=== PATIENT | male | born 1935 | race Caucasian/White ===

== ENCOUNTER → 2016-09-13 | Outpatient (REF) | payer MEDICARE ==
[~2016-09-13] MED LIST: ACET50TAOT PO; ALBU83IN INH; AMLO10TA2 PO; ATOR1TAB21 PO; ATOR40TA PO; DRIS50002 PO; FERR325T3 PO; FINA5TAB2 PO; FLOM5CAP PO; LEVO25TA5 PO; METO25TAB FT; METO25TAB PO; MULT1TAB10 PO; PANT40TA2 PO; QUIN40TA5 PO
== END ==
LOC: M SFHCPLAZ 08:56
PROVIDERS: ATTEND Family Medicine
DX: D50.9 Iron deficiency anemia, unspecified (principal); E55.9 Vitamin D deficiency, unspecified; E03.9 Hypothyroidism, unspecified; Z53.8 Procedure and treatment not carried out for other reasons

== ENCOUNTER → 2016-09-15 | Outpatient (REF) | payer MEDICARE ==
[2016-09-15 13:06] LABS: BASO % 0.7 % (0.0-1.0); EOS # 0.2 K/mm3 (0.0-0.50); EOS % 2.3 % (0.0-3.0); LARGE UNSTAINED CELL # 0.1 K/mm3 (0.0-0.4); LARGE UNSTAINED CELL % 2.2 % (0.0-4.0); LYMPH # 1.5 K/mm3 (1.5-4.5); LYMPH % 20.1 % (24.0-44.0); MEAN CORPUSCULAR HEMOGLOBIN 31.7 pg (27.0-33.0); MEAN CORPUSCULAR HGB CONC 33.3 g/dl (32.0-36.5); MEAN CORPUSCULAR VOLUME 95.2 fl (80.0-96.0); MONO # 0.6 K/mm3 (0.0-0.8); MONO % 8.8 % (0.0-5.0); NEUTROPHILS # 4.3 K/mm3 (1.8-7.7); PLATELET COUNT, AUTOMATED 192 k/mm3 (150-450); RED CELL DISTRIBUTION WIDTH 12.6 % (11.5-14.5); WHITE BLOOD COUNT 6.5 K/mm3 (4.0-10.0)
[2016-09-15 13:33] LABS: VITAMIN B12 LEVEL 431 PG/ML (247-911)
[2016-09-15 13:39] LABS: ALBUMIN 4.3 GM/DL (3.2-5.2); ALBUMIN/GLOBULIN RATIO 1.48 (1.00-1.93); ALKALINE PHOSPHATASE 76 U/L (45-117); ALT/SGPT 25 U/L (12-78); ANION GAP 11 MEQ/L (8-16); AST/SGOT 27 U/L (15-37); BILIRUBIN,TOTAL 0.7 MG/DL (0.2-1.0); BLOOD UREA NITROGEN 18 MG/DL (7-18); CALCIUM LEVEL 9.1 MG/DL (8.8-10.2); CARBON DIOXIDE LEVEL 27 MEQ/L (21-32); CHLORIDE LEVEL 105 MEQ/L (98-107); FERRITIN 40 NG/ML (26-388); GLOMERULAR FILTRATION RATE > 60.0 (>35); GLUCOSE, FASTING 87 MG/DL (83-110); PERCENT SATURATION 43.4 % (19.7-37.4); POTASSIUM SERUM 4.1 MEQ/L (3.5-5.1); SODIUM LEVEL 143 MEQ/L (136-145); TOTAL IRON BINDING CAPACITY 346 UG/DL (250-450); TOTAL PROTEIN 7.2 GM/DL (6.4-8.2)
== END ==
LOC: M SFHCPLAZ 08:15
PROVIDERS: ATTEND Family Medicine
DX: D50.9 Iron deficiency anemia, unspecified (principal); E55.9 Vitamin D deficiency, unspecified; E03.9 Hypothyroidism, unspecified

== ENCOUNTER 2016-11-19 21:09 | Inpatient (IN) | payer MEDICARE ==
[~2016-11-19] VITALS: Ht 175.3 cm; Wt 87.6 kg
[2016-11-19] MEDS ORDERED: NS 1,000 ML IV SCH (21:46)
[2016-11-19] MEDS ORDERED: ONDANSETRON 4MG/2ML VIAL (J2405) IV ONE (22:00)
[2016-11-19] MEDS ORDERED: MORPHINE 2 MG/ML 1ML SYRINGE IV PRN (22:00)
[2016-11-19 22:10] LABS: BASO % 0.1 % (0.0-1.0); EOS # 0.1 K/mm3 (0.0-0.50); EOS % 0.5 % (0.0-3.0); LARGE UNSTAINED CELL # 0.2 K/mm3 (0.0-0.4); LARGE UNSTAINED CELL % 1.2 % (0.0-4.0); LYMPH % 6.3 % (24.0-44.0); MEAN CORPUSCULAR HEMOGLOBIN 32.7 pg (27.0-33.0); MEAN CORPUSCULAR HGB CONC 34.5 g/dl (32.0-36.5); MEAN CORPUSCULAR VOLUME 94.7 fl (80.0-96.0); MONO # 1.3 K/mm3 (0.0-0.8); MONO % 7.8 % (0.0-5.0); NEUTROPHILS # 13.7 K/mm3 (1.8-7.7); NEUTROPHILS % 84.1 % (36.0-66.0); PLATELET COUNT, AUTOMATED 190 k/mm3 (150-450); RED CELL DISTRIBUTION WIDTH 12.2 % (11.5-14.5); WHITE BLOOD COUNT 16.3 K/mm3 (4.0-10.0)
[2016-11-19 22:16] LABS: INR 1.06
[2016-11-19 22:25] LABS: ALBUMIN 3.9 GM/DL (3.2-5.2); ALKALINE PHOSPHATASE 99 U/L (45-117); ALT/SGPT 39 U/L (12-78); ANION GAP 10 MEQ/L (8-16); AST/SGOT 36 U/L (15-37); BILIRUBIN,DIRECT 0.2 MG/DL (0.0-0.2); BILIRUBIN,TOTAL 0.9 MG/DL (0.2-1.0); BLOOD UREA NITROGEN 22 MG/DL (7-18); CALCIUM LEVEL 8.9 MG/DL (8.8-10.2); CARBON DIOXIDE LEVEL 26 MEQ/L (21-32); CHLORIDE LEVEL 104 MEQ/L (98-107); GLOMERULAR FILTRATION RATE > 60.0 (>35); GLUCOSE, FASTING 128 MG/DL (83-110); POTASSIUM SERUM 3.9 MEQ/L (3.5-5.1); SODIUM LEVEL 140 MEQ/L (136-145); TOTAL PROTEIN 7.8 GM/DL (6.4-8.2)
--- NOTE | 2016-11-19 22:40 | REPUSA ---
CT of the abdomen and pelvis without contrast Clinical statement: Pain, fever. Technique: Multiple axial CT images were obtained from the base of the lungs to the floor of the pelv is utilizing 5 mm axial slices without administration of contrast. Coronal and sagittal reconstructio ns were also obtained. No comparison is available. Findings: Chest: The visualized lung bases are clear.. There is a large hiatal hernia. Abdomen: The kidneys are normal in size bilaterally. There is no evidence of hydronephrosis or nephro lithiasis. The liver, spleen, pancreas, gallbladder and adrenal glands are unremarkable. The aorta de monstrates normal caliber and contour. There is no abdominal lymphadenopathy or ascites. Pelvis: The appendix is thickened and inflamed, measuring 14 mm in diameter. Moderately severe surrou nding inflammation in the mesentery is noted. No free fluid or loculated fluid collection is seen. Th ere is evidence for a microperforation, with several very tiny pockets of gas around the appendix. E xtensive diverticulosis is noted. The remainder of the bowel is grossly unremarkable. There is a sma ll midline anterior abdominal wall hernia containing only omental fat. The urinary bladder demonstra nathanael a large right posterior lateral bladder diverticulum measuring 7.8 x 6.6 cm. Trabeculations are n oted within the bladder wall as well. No discrete mass is seen. There is no pelvic lymphadenopathy or ascites. The prostate measures 4.9 x 4.1 cm. Bones: There are no suspicious osseous abnormalities seen. Impression: 1. Findings consistent with acute appendicitis. No evidence of abscess. Findings are suspicious for a microperforation. 2. Severe diffuse diverticulosis, without evidence of diverticulitis. No obstructive bowel changes ar e noted. 3. Large hiatal hernia. 4. No evidence of hydronephrosis or nephrolithiasis. 5. Small midline anterior abdominal wall hernia. 6. Large right posterior lateral bladder diverticulum. Extensive trabeculations also noted within the urinary bladder. This is suspicious for a previous inflammatory processes. Follow-up is recommended as clinically indicated. 7. Enlarged prostate. ER Physician was notified of these findings at 10:30 PM on 11/19/2016.
[2016-11-19] MEDS ORDERED: ONDANSETRON 4MG/2ML VIAL (J2405) IV PRN (22:45)
[2016-11-19] MEDS ORDERED: NORCO, ANEXSIA 5/325MG TABLET (HYDROcodone/ACETAMINOPHEN) PO PRN (22:45)
[2016-11-19] MEDS ORDERED: PIPERACILLIN/TAZOBACTAM SOD 3.375 GM in D5W MINI-BAG PLUS 50 ML IV ONE (22:45)
[2016-11-19] MEDS ORDERED: MORPHINE 4 MG/ML 1ML SYRINGE IV PRN (22:45)
[2016-11-19] MEDS ORDERED: VITMTA PO (23:26)
[2016-11-19] MEDS ORDERED: METO-346 PO (23:40)
[2016-11-20] VITALS (11 sets, daily range): BP systolic 129–185; BP diastolic 64–91
[2016-11-20] MEDS: LR 1,000 ML IV SCH ×2 (01:01→09:01)
[2016-11-20] MEDS: SENOKOT S TAB PO SCH ×3 (01:11→20:18)
[2016-11-20] MEDS: NORCO, ANEXSIA 5/325MG TABLET (HYDROcodone/ACETAMINOPHEN) PO PRN ×3 (01:12→20:19)
[2016-11-20] MEDS: METOPROLOL TART 25 MG TABLET PO SCH ×3 (01:12→20:18)
[2016-11-20] MEDS: PIPERACILLIN/TAZOBACTAM SOD 3.375 GM in D5W MINI-BAG PLUS 50 ML IV SCH ×4 (05:21→23:22)
[2016-11-20] MEDS: QUINAPRIL 20 MG TAB PO SCH (09:00)
[2016-11-20] MEDS ORDERED: amLODIPine 5 MG TAB PO SCH (09:00)
[2016-11-20] MEDS ORDERED: BUPIVACAINE HCL 0.25% 30 ML VIAL As Ordered ONE (09:11)
[2016-11-20] MEDS ORDERED: LIDOCAINE 1% SDV INJ 30 ML VIAL As Ordered ONE (09:11)
--- NOTE | 2016-11-20 09:25 | HPEPDOC ---
General Date of Admission November 19, 2016 at 22:43 Primary Care Physician: Babar Verma M.D. Attending Physician: RENATA PÉREZ MD Chief Complaint The patient is a 81-year-old male admitted with a reason for visit of lower abdominal pain. Source: Patient Exam Limitations: No limitations Timing/Duration: Day(s) Severity: Moderate Associated Symptoms: Chest Pain, Fever, Loss of appetite, Nausea History of Present Illness Patient presents to the ED with complaints of a 3 day history of abdominal pain. Patient reports right-sided lower abdominal pain that started roughly morning. Was vague the start but became severe Tuesday. Patient felt mildly febrile. He reports nausea but no vomiting. He denies any diarrhea, any sick contacts. He denies any prior episodes of similar symptoms. The symptoms became more constant, increased in severity, more sharp in nature, worse with walking. This prompted him to visit the emergency room where he was worked up and found to have evidence for acute appendicitis. Home Medications Scheduled Amlodipine Besylate (Amlodipine Besylate) 10 Mg Tab, 10 MG PO DAILY, (Reported) Atorvastatin Calcium (Atorvastatin Calcium) 40 Mg Tab, 40 MG PO DAILY, (Reported ) Ferrous Sulfate (Ferrous Sulfate) 325 Mg Tab, 325 MG PO DAILY, (Reported) Finasteride (Finasteride) 5 Mg Tab, 5 MG PO QHS, (Reported) Levothyroxine Sodium (Synthroid) 25 Mcg Tab, 37.5 MCG PO DAILY, (Reported) Metoprolol Tartrate (Metoprolol Tartrate) 12.5 Mg Halftab, 12.5 MG PO BID, ( Reported) Multivitamins *[facility] STOCKED* (Thera M Plus *[facility] STOCK[facility]*) 1 Tab Tab, 1 TAB PO DAILY, (Reported) Pantoprazole Sodium (Pantoprazole Sodium) 40 Mg Tab, 40 MG PO QHS, (Reported) Quinapril Hcl (Quinapril HCl) 40 Mg Tab, 40 MG PO DAILY, (Reported) Tamsulosin Hydrochloride (Flomax) 0.4 Mg Cap, 0.4 MG PO QHS, (Reported) Scheduled PRN Acetaminophen (Acetaminophen) 500 Mg Tab, 1,000 MG PO Q4H PRN for PAIN, ( Reported) Albuterol Sulfate (Albuterol Sulfate) 2.5 Mg/3 Ml Nebu, 2.5 MG INH Q4H PRN for SHORTNESS OF BREATH, (Reported) Allergies Coded Allergies: No Known Allergies (Unverified , 10/27/15) Past Medical History Medical History GERD HYPERLIPIDEMIA 2B C-DIFF 05/2014-06/2014 CAD, 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 THOMAS[facility] CKD STAGE 3 AVAILABLE), BUT PER PATIENT FELT 2 ASPIRIN ASTHMA, MILD INTERMITTENT, URI-INDUCED B 50-69% ICA STENOSIS BY 05/2014 US DONE PRIOR TO CABG HYPOTHYROIDISM-12/2014 TPO AB (<60) IRON DEFICIENCY ANEMIA VITMAIN D DEFICIENCY IMPAIRED FASTING GLUCOSE LARGE HIATAL HERNIA BY 10/2015 EGD/COLONOSCOPY/UGI SBFT-REINDL BPH C H/O URINARY RETENTION-12/2015 CYSTO C LARGE DIVERTICULUM-KEYSHAWN, 11/2015 NORMAL UDS MODERATE AV SCLEROSIS, MILD AI, MILD PHTN, NORMAL DIASTOLIC/SYSTOLIC FUNCTION BY 08/2016 [facility] Surgical History HERNIA REPAIR LEFT INGUINAL [address] POLLARD 05/16/14 CAB[address] 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 Dyspnea, Lt Headedness Gastrointestinal: Reports: Nausea, Abdominal Pain Genitourinary: Reports: Retention Hematologic: Denies: Bruising, Bleeding Excessively Musculoskeletal: Denies: Neck Pain, Back Pain, Joint Pain, Muscle Pain, Spasms Neurological: Denies: Weakness, Numbness, Change in speech, Confusion Psych: Reports: Mood Normal, Denies: Depression, Memory Issues Physical Examination Eye Exam: Positive: PERRLA, Conjunctiva & lids normal, EOMI, Negative: Sclera icteric ENT Exam: Positive: Atraumatic, Mucous membr. moist/pink, Pharynx Normal Neck Exam: Positive: Supple, Negative: JVD, thyromegaly Chest Exam: Positive: Clear to auscultation, Normal air movement Heart Exam: Positive: Rate Normal, Regular Rhythm, Normal S1, Normal S2, Negative: Murmurs, Rubs Abdomen Exam: Positive: Normal bowel sounds, BS Hyperactive, BS Hypoactive, Soft, Tenderness (right lower quadrant, suprapubic, intraumbilical area with mild guarding), Hepatospenomegaly, Other (round abdomen, soft, tender to palpation right lower quadrant with guarding), Negative: Mass, Hernia Extremity Exam: Positive: Normal pulses, Negative: Clubbing, Cyanosis, Edema Skin Exam: Positive: Nl turgor and temperature, Negative: Breakdown, Lesion Neuro Exam: Positive: Normal Gait, Normal Speech, Cranial Nerves 3-12 NL, Reflexes 2+ Psych Exam: Positive: Mental status NL, Mood NL, Oriented x 3 Vital Signs Vital Signs Date Time Temp Pulse Resp B/P (MAP) Pulse Ox O2 Delivery O2 Flow Rate FiO2 11/20/16 06:56 130/64 (86) 11/20/16 06:07 18 11/20/16 05:50 98.9 66 95 Room Air Laboratory Data Labs 24H Laboratory Tests 2 11/19/16 21:46: Prothrombin Time 13.9, Prothromb Time International Ratio 1.06 11/19/16 21:47: White Blood Count 16.3H, Red Blood Count 4.54, Hemoglobin 14.8, Hematocrit 43.0 , Mean Corpuscular Volume 94.7, Mean Corpuscular Hemoglobin 32.7, Mean Corpuscular Hemoglobin Concent 34.5, Red Cell Distribution Width 12.2, Platelet Count 190, Neutrophils (%) (Auto) 84.1H, Lymphocytes (%) (Auto) 6.3L, Monocytes (%) (Auto) 7.8H, Eosinophils (%) (Auto) 0.5, Basophils (%) (Auto) 0.1, Neutrophils # (Auto) 13.7H, Lymphocytes # (Auto) 1.0L, Monocytes # (Auto) 1.3H, Eosinophils # (Auto) 0.1, Basophils # (Auto) 0.0, Large Unclassified Cells % 1.2 , Large Unclassified Cells # 0.2, Anion Gap 10, Glomerular Filtration Rate > 60.0, Calcium Level 8.9, Aspartate Amino Transf (AST/SGOT) 36, Alanine Aminotransferase (ALT/SGPT) 39, Alkaline Phosphatase 99, Total Bilirubin 0.9, Direct Bilirubin 0.2, Total Creatine Kinase 147, Creatine Kinase MB 1.4, Creatine Kinase MB Relative Index 0.95, Troponin I < 0.02, Total Protein 7.8, Albumin 3.9, Albumin/Globulin Ratio 1.00, Lipase 126 11/20/16 00:21: Urine Appearance CLOUDYH, Urine Color YELLOW, Urine pH 5.0, Urine Specific [place] 1.021, Urine Protein NEGATIVE, Urine Glucose (UA) NEGATIVE, Urine Ketones NEGATIVE, Urine Urobilinogen 0.2, Urine Bilirubin NEGATIVE, Urine Leukocyte Esterase 3+H, Urine Blood 1+H, Urine Nitrite POSITIVE, Urine WBC (Auto ) 133H, Urine RBC (Auto) 21H, Urine Hyaline Casts (Auto) 0, Urine Bacteria (Auto ) NEGATIVE, Urine Squamous Epithelial Cells 0, Urine Amorphous Sediment SMALLH, Urine Mucus (Auto) SMALL, Urine Sperm (Auto) CBC/BMP Laboratory Tests 11/19/16 21:47 Red Blood Count 4.54, Mean Corpuscular Volume 94.7, Mean Corpuscular Hemoglobin 32.7, Mean Corpuscular Hemoglobin Concent 34.5, Red Cell Distribution Width 12.2 , Neutrophils (%) (Auto) 84.1 H, Lymphocytes (%) (Auto) 6.3 L, Monocytes (%) ( Auto) 7.8 H, Eosinophils (%) (Auto) 0.5, Basophils (%) (Auto) 0.1, Neutrophils # (Auto) 13.7 H, Lymphocytes # (Auto) 1.0 L, Monocytes # (Auto) 1.3 H, Eosinophils # (Auto) 0.1, Basophils # (Auto) 0.0 Microbiology Microbiology 11/20/16 Urine Culture, Received Pending Assessment/Plan acute perforated appendicitis Problems (1) Acute perforated appendicitis Plan / VTE VTE Prophylaxis Ordered?: Yes Plan Plan There is evidence that the appendix may have signs of perforation (bubbles of free air around tip of appendix) maybe ischemic/necrotic. No signs of well formed abscess. I think he will still benefit with laparoscopic appendectomy to cut down the inflammatory process. Should be doable laparoscopic with mild increased risk for bowel injury. Consent obtained from the patient. He has been started and given Zosyn perioperatively. He most likely will keep him in the hospital until leukocytosis resolves and to ensure no febrile episodes postoperatively. Diet: RENATA Ortiz MD November 20, 2016 08:29
[2016-11-20] MEDS ORDERED: dexameTHASONE 4 MG/ML 1ML VIAL (J1100) As Ordered ONE (10:29)
[2016-11-20] MEDS ORDERED: ONDANSETRON 4MG/2ML VIAL (J2405) As Ordered ONE (10:29)
[2016-11-20] MEDS ORDERED: LIDOCAINE 2% INJ 100 MG/5 ML SDV (FOR ANES.) As Ordered ONE (10:29)
[2016-11-20] MEDS ORDERED: MIDAZOLAM INJ 2 MG/2 ML VIAL (J2250) As Ordered ONE (10:29)
[2016-11-20] MEDS ORDERED: NEOSTIGMINE 1MG/ML 5 ML SYRINGE (J2710) As Ordered ONE (10:29)
[2016-11-20] MEDS ORDERED: fentaNYL 250 MCG/5 ML INJECTION (J3010) As Ordered ONE (10:29)
[2016-11-20] MEDS ORDERED: GLYCOPYRROLATE INJ 0.2 MG/ML 2 ML VIAL As Ordered ONE (10:29)
[2016-11-20] MEDS ORDERED: PROPOFOL 200 MG/20 ML VIAL As Ordered ONE (10:29)
[2016-11-20] MEDS ORDERED: ROCURONIUM BROMIDE 50 MG/5 ML VIAL As Ordered ONE (10:29)
--- NOTE | 2016-11-20 10:56 | ROOPDOC ---
[facility] Report Of Operation Report of Operation DATE OF PROCEDURE: 11/20/16 PREPROCEDURE DIAGNOSES: [Acute perforated appendicitis]. POSTPROCEDURE DIAGNOSES: . PROCEDURE: [Laparoscopic appendectomy]. SURGEON: [Renard Elias]MD DIGITAL COMMUNICATIONS MANAGER: , ANESTHESIA: [General]. ESTIMATED BLOOD LOSS: Approximately mL. COMPLICATIONS: [none]. REMARKS: [Perforated appendix but no loculated abscess and small amount of reactive seropurulent fluid in the gutter and in the pelvis. A 10 flat JUSTYNA drain was left in place]. PROCEDURE NOTE: [Patient admitted through the emergency department with a three- day history of abdominal pain. Workup in the ER shows acute appendicitis with surrounding bubbles of free air consistent with perforation/microperforation. Patient is brought to the OR for laparoscopic appendectomy]. DESCRIPTION OF PROCEDURE: . Patient has been given a dose of Zosyn perioperatively.Patient was brought to the operating room, placed supine on the table. Sequential compression device placed for DVT prophylaxis. General endotracheal anesthesia started. The abdomen prepped and draped in usual sterile fashion. After a surgical timeout, we began our surgery Entry into the abdomen done through an incision above the umbilicus. Veress needle inserted on a controlled fashion. Intra-abdominal placement confirmed with saline drop technique. CO2 insufflation started to a pressure of 15 mmHg. Using the same incision a 12 mm port was placed under direct vision of laparoscope. Insertion site was inspected for injury and none was found. He was placed on a Trendelenburg position the right side tilted to about 30 to allow for better visualization of the appendix. 2 working ports were placed at the suprapubic area and left lower quadrant area under direct vision. Operative findings: The appendix is noted inflamed and stuck in b/w the loop of small bowel and mesentery and the terminal ileum on the other side, There is fibrinous covering throughout the mid portion of appendix. Small amount of murky serous fluid in the gutter and pelvis The appendix was located, the adhered bowels and mesentery was widely dissected away from the appendix freeing up the appendix from the inflammatory adhesions using [place] instrument and suction irrigation. The Surrounding bowels retracted away from the appendix. This was grasped to pull the base of the appendix into view. The mesoappendix was divided using Harmonic scalpel down to the base. A Vicryl Endoloop was placed to ligate the appendix at its base then divided with a Harmonic Scalpel the stump cauterized. Stump appears healthy. Appendix was then delivered into an Endo Catch bag. After re-insufflation the surgical site was inspected for hemostasis, the visualized fluid collections irrigated and suctioned off until clear return. Surrounding areas of the abdomen and inspected for fluid collections or signs of injury. A 10 flat JUSTYNA drain was left in place close to the abdomen initial stump for monitoring and for drainage of fluid irrigation. The abdomen was deflated. All ports removed. The umbilical fascial defect repaired with 0 Vicryl in a mattress fashion. All skin incisions closed with 4-0 Monocryl in a subcuticular fashion. Steri-Strips and gauze dressing used for wound coverage. Patient was promptly awake and extubated and brought to recovery room stable. All counts of sponges and instruments verified to be correct. RENARD ELIAS MD November 20, 2016 09:54
[2016-11-20] MEDS ORDERED: fentaNYL 100 MCG/2 ML INJECTION (J3010) IV PRN (11:15)
[2016-11-20] MEDS ORDERED: PERCOCET 5MG/325MG TAB PO PRN (11:15)
[2016-11-20] MEDS ORDERED: LR 1,000 ML IV SCH (11:15)
[2016-11-20] MEDS ORDERED: HYDROmorphone HCL 1 MG/ML SYRINGE (J1170) IV PRN (11:15)
[2016-11-20] MEDS ORDERED: ONDANSETRON 4MG/2ML VIAL (J2405) IV PRN (11:15)
[2016-11-20] MEDS ORDERED: PERCOCET 5MG/325MG TAB As Ordered ONE (11:27)
--- NOTE | 2016-11-20 18:51 | ECGEPIP ---
Stationary ECG Study [facility] Test Date: 2016-11-20 Pat Name: ELLYN ZAVALA Department: Room: [place] [address] Gender: M [employer] Application Developer: CHARBEL : [id number] Requested By: RENATA Ashby Order Number: [id number] Reading MD: José Miguel Marroquin Measurements Intervals [place] Rate: 74 P: 70 [place]: 219 QRS: -3 QRSD: 158 T: 17 QT: 407 QTc: 453 Interpretive Statements SINUS RHYTHM WITH FIRST DEGREE AV BLOCK POSSIBLE RIGHT ATRIAL ENLARGEMENT INDETERMINATE AXIS RIGHT BUNDLE BRANCH BLOCK Probable right ventricle enlargement. No significant change compared with 06/29/2016. Electronically Signed On 11-20-2016 18:51:20 EDT by José Miguel Marroquin
[2016-11-21] MEDS: NORCO, ANEXSIA 5/325MG TABLET (HYDROcodone/ACETAMINOPHEN) PO PRN ×4 (04:01→21:10)
[2016-11-21] MEDS: PIPERACILLIN/TAZOBACTAM SOD 3.375 GM in D5W MINI-BAG PLUS 50 ML IV SCH (05:09)
[2016-11-21 06:00] VITALS: BP 149/70
[2016-11-21 06:15] LABS: BASO % 0.1 % (0.0-1.0); EOS % 0.1 % (0.0-3.0); LARGE UNSTAINED CELL # 0.2 K/mm3 (0.0-0.4); LARGE UNSTAINED CELL % 1.3 % (0.0-4.0); LYMPH # 1.1 K/mm3 (1.5-4.5); MEAN CORPUSCULAR HEMOGLOBIN 31.7 pg (27.0-33.0); MEAN CORPUSCULAR HGB CONC 33.8 g/dl (32.0-36.5); MEAN CORPUSCULAR VOLUME 93.6 fl (80.0-96.0); MONO # 1.2 K/mm3 (0.0-0.8); MONO % 8.8 % (0.0-5.0); NEUTROPHILS # 11.4 K/mm3 (1.8-7.7); NEUTROPHILS % 82.7 % (36.0-66.0); PLATELET COUNT, AUTOMATED 201 k/mm3 (150-450); RED CELL DISTRIBUTION WIDTH 12.2 % (11.5-14.5); WHITE BLOOD COUNT 13.8 K/mm3 (4.0-10.0)
[2016-11-21 06:32] LABS: ANION GAP 7 MEQ/L (8-16); BLOOD UREA NITROGEN 15 MG/DL (7-18); CARBON DIOXIDE LEVEL 30 MEQ/L (21-32); CHLORIDE LEVEL 101 MEQ/L (98-107); CREATININE FOR GFR 1.06 MG/DL (0.70-1.30); GLOMERULAR FILTRATION RATE > 60.0 (>35); GLUCOSE, FASTING 106 MG/DL (83-110); SODIUM LEVEL 138 MEQ/L (136-145)
[2016-11-21] MEDS: amLODIPine 10 MG TAB PO SCH (08:49)
[2016-11-21] MEDS: SENOKOT S TAB PO SCH ×2 (08:50→21:09)
[2016-11-21] MEDS: METOPROLOL TART 25 MG TABLET PO SCH ×2 (08:50→21:09)
[2016-11-21 10:00] VITALS: BP 131/65
[2016-11-21] MEDS: QUINAPRIL 20 MG TAB PO SCH (10:23)
[2016-11-21] MEDS: CIPROFLOXACIN 500 MG TAB PO SCH ×2 (10:41→17:08)
[2016-11-21 14:00] VITALS: BP 146/75
[2016-11-21] MEDS: metroNIDAZOLE (FLAGYL) 500 MG TAB PO SCH ×2 (14:14→21:12)
[2016-11-21 18:00] VITALS: BP 135/65
[2016-11-21 22:00] VITALS: BP 174/84
[2016-11-22 05:24] VITALS: BP 167/86
[2016-11-22] MEDS: CIPROFLOXACIN 500 MG TAB PO SCH ×2 (05:24→16:55)
[2016-11-22] MEDS: metroNIDAZOLE (FLAGYL) 500 MG TAB PO SCH ×3 (05:24→20:04)
[2016-11-22] MEDS: ACETAMINOPHEN TAB 650MG DOSE (2X325MG) PO PRN (05:24)
[2016-11-22 05:55] LABS: BASO % 0.3 % (0.0-1.0); EOS # 0.3 K/mm3 (0.0-0.50); EOS % 2.4 % (0.0-3.0); LARGE UNSTAINED CELL # 0.2 K/mm3 (0.0-0.4); LARGE UNSTAINED CELL % 1.5 % (0.0-4.0); LYMPH # 0.9 K/mm3 (1.5-4.5); LYMPH % 6.9 % (24.0-44.0); MEAN CORPUSCULAR HEMOGLOBIN 32.5 pg (27.0-33.0); MEAN CORPUSCULAR HGB CONC 34.7 g/dl (32.0-36.5); MEAN CORPUSCULAR VOLUME 93.7 fl (80.0-96.0); MONO # 1.3 K/mm3 (0.0-0.8); MONO % 11.3 % (0.0-5.0); NEUTROPHILS # 8.7 K/mm3 (1.8-7.7); NEUTROPHILS % 77.6 % (36.0-66.0); PLATELET COUNT, AUTOMATED 209 k/mm3 (150-450); WHITE BLOOD COUNT 11.2 K/mm3 (4.0-10.0)
[2016-11-22 06:07] LABS: ANION GAP 8 MEQ/L (8-16); BLOOD UREA NITROGEN 22 MG/DL (7-18); CALCIUM LEVEL 8.3 MG/DL (8.8-10.2); CARBON DIOXIDE LEVEL 27 MEQ/L (21-32); CHLORIDE LEVEL 101 MEQ/L (98-107); CREATININE FOR GFR 1.01 MG/DL (0.70-1.30); GLOMERULAR FILTRATION RATE > 60.0 (>35); GLUCOSE, FASTING 92 MG/DL (83-110); POTASSIUM SERUM 3.8 MEQ/L (3.5-5.1); SODIUM LEVEL 136 MEQ/L (136-145)
[2016-11-22 09:03] VITALS: BP 170/78
[2016-11-22] MEDS: QUINAPRIL 20 MG TAB PO SCH (09:10)
[2016-11-22] MEDS: SENOKOT S TAB PO SCH ×2 (09:10→20:04)
[2016-11-22] MEDS: METOPROLOL TART 25 MG TABLET PO SCH ×2 (09:11→20:05)
[2016-11-22] MEDS: amLODIPine 10 MG TAB PO SCH (09:11)
--- NOTE | 2016-11-22 09:14 | IPNPDOC ---
Subjective General Date/Time Seen The patient was seen on 11/22/16 at 09:00. Subject Chief Complaint/History The patient is a 81-year-old male admitted with a reason for visit of Acute Appendicitis. Reports feeling well. No discomfort over right side, some discomfort where drain exits. Had low grade temp earlier this am (100.4) and reports a passing nausea spell but alright now. Current Medications Current Medications Current Medications Acetaminophen (Tylenol Tab) 650 mg Q4HP PRN PO MILD PAIN or TEMP > 101 Last administered on 11/22/16 05:24; Start 11/19/16 at 22:45; Stop 12/19/16 at 22:44 Acetaminophen/ Hydrocodone Bitart ([place], [place] 5/325) 1 tab Q4HP PRN PO MODERATE PAIN (PS 5-7) Last administered on 11/21/16 21:10; Start 11/19/16 at 22:45; Stop 11/26/16 at 22:44 Acetaminophen/ Hydrocodone Bitart ([place], Anexsia 5/325) 2 tab Q6HP PRN PO SEVERE PAIN (PS 8-10); Start 11/19/16 at 22:45; Stop 11/26/16 at 22:44 Amlodipine Besylate (Norvasc) 10 mg DAILY PO Last administered on 11/20/16 09: 00; Start 11/20/16 at 09:00; Stop 11/20/16 at 11:03; Status DC Amlodipine Besylate (Norvasc) 10 mg DAILY PO Last administered on 11/21/16 08: 49; Start 11/21/16 at 09:00; Stop 12/21/16 at 08:59 Ciprofloxacin (Cipro) 500 mg BID@,18 PO Last administered on 11/22/16 05:24 ; Start 11/21/16 at 06:00; Stop 11/28/16 at 05:59 Fentanyl Citrate (Sublimaze) 25 mcg Q5MP PRN IV MODERATE PAIN (PS 4-7); Start 11/20/16 at 11:15; Stop 11/20/16 at 12:15; Status DC Home Med (Med Rec Complete!) ASDIRECTED XX ; Start 11/19/16 at 23:30; Stop 06/26 at 23:30; Status DC Hydromorphone HCl (Dilaudid) 0.2 mg Q5MP PRN IV MODERATE/SEVERE PAIN (PS 7-10) ; Start 11/20/16 at 11:15; Stop 11/20/16 at 12:15; Status DC Lactated Ringer's 1,000 ml @ 100 mls/hr Q10H IV Last administered on 09:01; Start 11/19/16 at 22:43; Stop 11/20/16 at 17:11; Status DC Lactated Ringer's 1,000 ml @ 100 mls/hr Q10H IV Last administered on 11:15; Start 11/20/16 at 11:15; Stop 11/20/16 at 12:15; Status DC Metoprolol Tartrate (Lopressor) 25 mg BID PO Last administered on 11/21/16 21: 09; Start 11/19/16 at 21:00; Stop 12/19/16 at 20:59 Metronidazole (Flagyl) 500 mg Q8H PO Last administered on 11/22/16 05:24; Start 11/21/16 at 14:00; Stop 11/28/16 at 13:59 Morphine Sulfate (Morphine Sulfate Inj) 2 mg Q15M PRN IV MODERATE/SEVERE PAIN ( PS 5-10) Last administered on 11/19/16 22:40; Start 11/19/16 at 22:00 Morphine Sulfate (Morphine Sulfate Inj) 4 mg Q2HP PRN IV SEVERE PAIN (PS 8-10) ; Start 11/19/16 at 22:45; Stop 11/26/16 at 22:44 Ondansetron HCl (ZOFRAN INJection) 4 mg Q4HP PRN IV NAUSEA OR VOMITING; Start 11/20/16 at 11:15; Stop 11/20/16 at 12:15; Status DC Ondansetron HCl (ZOFRAN INJection) 4 mg Q6HP PRN IV NAUSEA OR VOMITING; Start 11/19/16 at 22:45; Stop 12/19/16 at 22:44 Oxycodone/ Acetaminophen (Percocet 5mg/ 325mg Tablet) 1 tab ASDIRECTED PRN PO MODERATE PAIN (PS 4-7) Last administered on 11/20/16 11:30; Start 11/20/16 at 11:15; Stop 11/20/16 at 12:15; Status DC Piperacillin Sod/ Tazobactam Sod 3.375 gm/Dextrose 50 ml @ 50 mls/hr Q6H IV Last administered on 11/21/16 05:09; Start 11/20/16 at 06:00; Stop 11/21/16 at 10:34; Status DC Quinapril HCl (Accupril) 40 mg DAILY PO Last administered on 11/21/16 10:23; Start 11/20/16 at 09:00; Stop 12/20/16 at 08:59 Senna/Docusate Sodium (Senokot S) 1 tab BID PO Last administered on 11/21/16 21:09; Start 11/19/16 at 21:00; Stop 12/19/16 at 20:59 Sodium Chloride 1,000 ml @ 100 mls/hr Q10H IV Last administered on 11/19/16 22:40; Start 11/19/16 at 21:46; Stop 11/19/16 at 22:50; Status DC Allergies Coded Allergies: No Known Allergies (Unverified , 10/27/15) Objective Physical Examination Examination GENERAL APPEARANCE:[Patient seen, laying in bed, awake, alert, and oriented. Comfortable, in no acute distress]. SKIN: [Warm and moist]. HEENT: [Normocephalic, atraumatic. Hoyt palpebral conjunctiva, anicteric sclerae. Lips and mucosa appear moist]. NECK: [Supple, no thyromegaly. No obvious jugular venous distention]. LUNGS: [Clear to auscultation bilaterally. No wheezing appreciated]. HEART: [No chest wall abnormalities. Regular rate and rhythm with no murmurs appreciated]. ABDOMEN: Abdomen is round, soft, minimally distended. port site dressings dry. Left lower quadrant roopa drain with serous fluid. nontender to palpation EXTREMITIES: [Extremities have no deformities. No edema identified]. Vital Signs Vital Signs Date Time Temp Pulse Resp B/P (MAP) Pulse Ox O2 Delivery O2 Flow Rate FiO2 11/22/16 05:24 100.4 73 18 167/86 (113) 94 Room Air 11/20/16 11:00 2 I&Os I&O- Last 24 Hours up to 6 AM 11/22/16 06:00 Intake Total 2450 ml Output Total 1735 ml Balance 715 ml ROOPA drain 40 (100 mLs overnight) - serous Laboratory Data Labs 24H Laboratory Tests 2 11/22/16 05:23: White Blood Count 11.2H, Red Blood Count 4.50, Hemoglobin 14.6, Hematocrit 42.2 , Mean Corpuscular Volume 93.7, Mean Corpuscular Hemoglobin 32.5, Mean Corpuscular Hemoglobin Concent 34.7, Red Cell Distribution Width 12.0, Platelet Count 209, Neutrophils (%) (Auto) 77.6H, Lymphocytes (%) (Auto) 6.9L, Monocytes (%) (Auto) 11.3H, Eosinophils (%) (Auto) 2.4, Basophils (%) (Auto) 0.3, Neutrophils # (Auto) 8.7H, Lymphocytes # (Auto) 0.9L, Monocytes # (Auto) 1.3H, Eosinophils # (Auto) 0.3, Basophils # (Auto) 0.0, Large Unclassified Cells % 1.5 , Large Unclassified Cells # 0.2, Anion Gap 8, Glomerular Filtration Rate > 60.0 , Blood Urea Nitrogen 22H, Creatinine 1.01, Sodium Level 136, Potassium Level 3.8, Chloride Level 101, Carbon Dioxide Level 27, Calcium Level 8.3L CBC/BMP Laboratory Tests 11/22/16 05:23 Red Blood Count 4.50, Mean Corpuscular Volume 93.7, Mean Corpuscular Hemoglobin 32.5, Mean Corpuscular Hemoglobin Concent 34.7, Red Cell Distribution Width 12.0 , Neutrophils (%) (Auto) 77.6 H, Lymphocytes (%) (Auto) 6.9 L, Monocytes (%) ( Auto) 11.3 H, Eosinophils (%) (Auto) 2.4, Basophils (%) (Auto) 0.3, Neutrophils # (Auto) 8.7 H, Lymphocytes # (Auto) 0.9 L, Monocytes # (Auto) 1.3 H, Eosinophils # (Auto) 0.3, Basophils # (Auto) 0.0, Calcium Level 8.3 L Microbiology Microbiology 11/20/16 Urine Culture - Final, Complete Staphylococcus Epidermidis (contaminant) Impression Acute perforated appendicitis Would watch him today, if does not spike any further febrile episodes would send him home on oral antibiotics. If he spikes a fever again, will switch back to IV antibiotics. Plan / VTE VTE Prophylaxis Ordered?: Yes RENATA PÉREZ MD November 22, 2016 09:14
[2016-11-22] MEDS: NORCO, ANEXSIA 5/325MG TABLET (HYDROcodone/ACETAMINOPHEN) PO PRN ×3 (09:23→23:00)
[2016-11-22 12:14] VITALS: BP 158/76
[2016-11-22 14:00] VITALS: BP 157/77
[2016-11-22 22:00] VITALS: BP 153/77
[2016-11-23] MEDS: metroNIDAZOLE (FLAGYL) 500 MG TAB PO SCH ×2 (05:26→14:53)
[2016-11-23] MEDS: CIPROFLOXACIN 500 MG TAB PO SCH (05:26)
[2016-11-23] MEDS: ACETAMINOPHEN TAB 650MG DOSE (2X325MG) PO PRN ×2 (05:28→12:01)
[2016-11-23 06:00] VITALS: BP 158/82
[2016-11-23 07:22] LABS: BASO % 0.4 % (0.0-1.0); EOS # 0.3 K/mm3 (0.0-0.50); EOS % 3.6 % (0.0-3.0); LARGE UNSTAINED CELL # 0.2 K/mm3 (0.0-0.4); LARGE UNSTAINED CELL % 2.6 % (0.0-4.0); LYMPH # 1.1 K/mm3 (1.5-4.5); LYMPH % 10.4 % (24.0-44.0); MEAN CORPUSCULAR HEMOGLOBIN 31.8 pg (27.0-33.0); MEAN CORPUSCULAR VOLUME 93.3 fl (80.0-96.0); MONO # 1.1 K/mm3 (0.0-0.8); MONO % 12.9 % (0.0-5.0); NEUTROPHILS # 6.1 K/mm3 (1.8-7.7); NEUTROPHILS % 70.1 % (36.0-66.0); PLATELET COUNT, AUTOMATED 231 k/mm3 (150-450); RED CELL DISTRIBUTION WIDTH 11.9 % (11.5-14.5); WHITE BLOOD COUNT 8.7 K/mm3 (4.0-10.0)
[2016-11-23 08:22] VITALS: BP 158/82
[2016-11-23] MEDS: QUINAPRIL 20 MG TAB PO SCH (08:22)
[2016-11-23] MEDS: amLODIPine 10 MG TAB PO SCH (08:22)
[2016-11-23] MEDS: SENOKOT S TAB PO SCH (08:23)
[2016-11-23] MEDS: METOPROLOL TART 25 MG TABLET PO SCH (08:23)
[2016-11-23] MEDS ORDERED: NORCOTAB PO (14:30)
[2016-11-23] MEDS ORDERED: CIPR500T89 PO (14:30)
[2016-11-23] MEDS ORDERED: FLAG500T PO (14:30)
--- NOTE | 2016-11-30 03:57 | DS.PDOC ---
Discharge Summary General Date of Admission November 19, 2016 at 22:43 Date of Discharge November 23, 2016 Attending Physician: RENATA PÉREZ MD Discharge Summary PROCEDURES PERFORMED DURING STAY: [None]. ADMITTING DIAGNOSES: 1. Acute Perforated Appendicitis 2. . 3. . DISCHARGE DIAGNOSES: 1. .Acute Perforated Appendicitis 2. . 3. . COMPLICATIONS/CHIEF COMPLAINT: Acute Appendicitis. HISTORY OF PRESENT ILLNESS: [see Admission Note]. HOSPITAL COURSE: [Patient was admitted overnight, started on Zosyn. He was taken to the operating room for Laparoscopic Appendectomy on 11/20. He was confirmed to have perforated appendicitis. A drain was left in place. He tolerated procedure well. We continued IV antibiotics perioperatively. He was allowed to eat after surgery. He tolerated oral diet. He was having intermittent low-grade fever. His leukocytosis slowly came down. On day of discharge his white cell count is down to normal at 8.7. He also has been afebrile for at least a day. His antibiotics was changed to ciprofloxacin and metronidazole orally as we lost IV access 2 days prior to discharge. His JUSTYNA drain was only putting out serous fluid. This was discontinued on day of discharge. Overall patient feels improved by discharge time. DISCHARGE MEDICATIONS: Please see below. ALLERGIES: Please see below. PHYSICAL EXAMINATION ON DISCHARGE: VITAL SIGNS: Please see below. GENERAL: Comfortable HEENT: [place] palpebral conjunctiva, moist lips and mucosa NECK: No jugular venous distention CARDIOVASCULAR EXAMINATION: Regular heart rate and rhythm RESPIRATORY EXAMINATION: Clear to auscultation bilaterally ABDOMINAL EXAMINATION: Soft, nondistended nontender. Incision sites healing well. Drain site clean and dry. EXTREMITIES: No edema SKIN: Warm and moist NEUROLOGICAL EXAMINATION: Awake alert oriented PSYCHIATRIC EXAMINATION: Normal mood and affect LABORATORY DATA: Please see below. PROGNOSIS: [excellent] ACTIVITY: Light activity 2 weeks DIET: As tolerated DISCHARGE PLAN: Continue on ciprofloxacin and metronidazole for 2 weeks. Follow- up with me in 2 weeks' time DISPOSITION: . home DISCHARGE INSTRUCTIONS: 1. Call for earlier appointment in with fever, nausea, vomiting, severe diarrhea DISCHARGE CONDITION: Greatly improved TIME SPENT ON DISCHARGE: Greater than 30 minutes. Vital Signs/I&Os Vital Signs Date Time Temp Pulse Resp B/P (MAP) Pulse Ox O2 Delivery O2 Flow Rate FiO2 11/20/16 09:01 66 130/64 11/20/16 06:07 18 11/20/16 05:50 98.9 95 Room Air I&O- Last 24 Hours up to 6 AM 11/20/16 06:00 Intake Total 1000 ml Output Total 350 ml Balance 650 ml Laboratory Data Labs 24H Laboratory Tests 2 11/19/16 21:46: Prothrombin Time 13.9, Prothromb Time International Ratio 1.06 11/19/16 21:47: White Blood Count 16.3H, Red Blood Count 4.54, Hemoglobin 14.8, Hematocrit 43.0 , Mean Corpuscular Volume 94.7, Mean Corpuscular Hemoglobin 32.7, Mean Corpuscular Hemoglobin Concent 34.5, Red Cell Distribution Width 12.2, Platelet Count 190, Neutrophils (%) (Auto) 84.1H, Lymphocytes (%) (Auto) 6.3L, Monocytes (%) (Auto) 7.8H, Eosinophils (%) (Auto) 0.5, Basophils (%) (Auto) 0.1, Neutrophils # (Auto) 13.7H, Lymphocytes # (Auto) 1.0L, Monocytes # (Auto) 1.3H, Eosinophils # (Auto) 0.1, Basophils # (Auto) 0.0, Large Unclassified Cells % 1.2 , Large Unclassified Cells # 0.2, Anion Gap 10, Glomerular Filtration Rate > 60.0, Calcium Level 8.9, Aspartate Amino Transf (AST/SGOT) 36, Alanine Aminotransferase (ALT/SGPT) 39, Alkaline Phosphatase 99, Total Bilirubin 0.9, Direct Bilirubin 0.2, Total Creatine Kinase 147, Creatine Kinase MB 1.4, Creatine Kinase MB Relative Index 0.95, Troponin I < 0.02, Total Protein 7.8, Albumin 3.9, Albumin/Globulin Ratio 1.00, Lipase 126 11/20/16 00:21: Urine Appearance CLOUDYH, Urine Color YELLOW, Urine pH 5.0, Urine Specific [place] 1.021, Urine Protein NEGATIVE, Urine Glucose (UA) NEGATIVE, Urine Ketones NEGATIVE, Urine Urobilinogen 0.2, Urine Bilirubin NEGATIVE, Urine Leukocyte Esterase 3+H, Urine Blood 1+H, Urine Nitrite POSITIVE, Urine WBC (Auto ) 133H, Urine RBC (Auto) 21H, Urine Hyaline Casts (Auto) 0, Urine Bacteria (Auto ) NEGATIVE, Urine Squamous Epithelial Cells 0, Urine Amorphous Sediment SMALLH, Urine Mucus (Auto) SMALL, Urine Sperm (Auto) CBC/BMP Laboratory Tests 11/19/16 21:47 Red Blood Count 4.54, Mean Corpuscular Volume 94.7, Mean Corpuscular Hemoglobin 32.7, Mean Corpuscular Hemoglobin Concent 34.5, Red Cell Distribution Width 12.2 , Neutrophils (%) (Auto) 84.1 H, Lymphocytes (%) (Auto) 6.3 L, Monocytes (%) ( Auto) 7.8 H, Eosinophils (%) (Auto) 0.5, Basophils (%) (Auto) 0.1, Neutrophils # (Auto) 13.7 H, Lymphocytes # (Auto) 1.0 L, Monocytes # (Auto) 1.3 H, Eosinophils # (Auto) 0.1, Basophils # (Auto) 0.0 Microbiology Microbiology 11/20/16 Urine Culture, Received Pending Discharge Medications Scheduled Amlodipine Besylate (Amlodipine Besylate) 10 Mg Tab, 10 MG PO DAILY, (Reported) Atorvastatin Calcium (Atorvastatin Calcium) 40 Mg Tab, 40 MG PO DAILY, (Reported ) Ciprofloxacin HCl (Cipro) 500 Mg Tab, 500 MG PO BID@ Ferrous Sulfate (Ferrous Sulfate) 325 Mg Tab, 325 MG PO DAILY, (Reported) Finasteride (Finasteride) 5 Mg Tab, 5 MG PO QHS, (Reported) Levothyroxine Sodium (Synthroid) 25 Mcg Tab, 37.5 MCG PO DAILY, (Reported) Metoprolol Tartrate (Metoprolol Tartrate) 12.5 Mg Halftab, 12.5 MG PO BID, ( Reported) Metronidazole (Flagyl) 500 Mg Tab, 500 MG PO Q8H Multivitamins *[facility] STOCKED* (Thera M Plus *[facility] STOCKED*) 1 Tab Tab, 1 TAB PO DAILY, (Reported) Pantoprazole Sodium (Pantoprazole Sodium) 40 Mg Tab, 40 MG PO QHS, (Reported) Quinapril Hcl (Quinapril HCl) 40 Mg Tab, 40 MG PO DAILY, (Reported) Tamsulosin Hydrochloride (Flomax) 0.4 Mg Cap, 0.4 MG PO QHS, (Reported) Scheduled PRN Acetaminophen (Acetaminophen) 500 Mg Tab, 1,000 MG PO Q4H PRN for PAIN, ( Reported) Acetaminophen/Hydrocodone (Strong, Anexsia 5/325) 1 Tab Tab, 1 TAB PO Q4HP PRN for PAIN Albuterol Sulfate (Albuterol Sulfate) 2.5 Mg/3 Ml Nebu, 2.5 MG INH Q4H PRN for SHORTNESS OF BREATH, (Reported) Allergies Coded Allergies: No Known Allergies (Unverified , 10/27/15) RENATA PÉREZ MD November 20, 2016 10:49
== END 2016-11-23 15:19 | disposition home or self-care (01) | DRG 340 ==
LOC: M ED 22:39 → M ED INP 22:43 → M MSPAV 11-20 00:55
PROVIDERS: ADMIT Surgery; ATTEND Surgery
PROC: 0DTJ4ZZ Resection of Appendix, Percutaneous Endoscopic Approach (ICD-10-PCS; principal; 2016-11-20 08:48)
DX: K35.2 Acute appendicitis with generalized peritonitis (principal); K21.9 Gastro-esophageal reflux disease without esophagitis; E78.5 Hyperlipidemia, unspecified; I25.10 Atherosclerotic heart disease of native coronary artery without angina pectoris; N18.3 Chronic kidney disease, stage 3 (moderate); J45.909 Unspecified asthma, uncomplicated; D50.9 Iron deficiency anemia, unspecified; E03.9 Hypothyroidism, unspecified; E55.9 Vitamin D deficiency, unspecified; Z79.899 Other long term (current) drug therapy

== ENCOUNTER → 2016-12-07 | Outpatient (REF) | payer MEDICARE ==
[~2016-12-07] MED LIST changes: +CIPR500T89 PO; +FLAG500T PO; +METO-346 PO; +NORCOTAB PO; +VITMTA PO
== END ==
LOC: M SFHCPLAZ 16:56
PROVIDERS: ATTEND Physician Assistant
DX: N39.0 Urinary tract infection, site not specified (principal)
CPT/HCPCS: 81001; 81002; 87088; 87186; G0463

== ENCOUNTER → 2017-02-09 | Outpatient (REF) | payer MEDICARE ==
[~2017-02-09] MED LIST changes: -ATOR40TA PO; +ATOR40TA75 PO; +CIPR-249 PO; -CIPR500T89 PO; +METO25TA4 PO; -METO25TAB PO; +QUIN1TAB15 PO; -QUIN40TA5 PO
[2017-02-09 11:31] LABS: MICROSCOPIC INDICATED? MAN YES (NO)
[2017-02-09 11:41] LABS: BASO % 0.7 % (0.0-1.0); EOS # 0.2 K/mm3 (0.0-0.50); LARGE UNSTAINED CELL # 0.1 K/mm3 (0.0-0.4); LARGE UNSTAINED CELL % 1.8 % (0.0-4.0); LYMPH # 1.4 K/mm3 (1.5-4.5); LYMPH % 16.1 % (24.0-44.0); MEAN CORPUSCULAR HEMOGLOBIN 32.1 pg (27.0-33.0); MEAN CORPUSCULAR HGB CONC 34.4 g/dl (32.0-36.5); MEAN CORPUSCULAR VOLUME 93.4 fl (80.0-96.0); MONO # 0.8 K/mm3 (0.0-0.8); MONO % 10.6 % (0.0-5.0); NEUTROPHILS # 5.3 K/mm3 (1.8-7.7); NEUTROPHILS % 68.9 % (36.0-66.0); PLATELET COUNT, AUTOMATED 220 k/mm3 (150-450); RED CELL DISTRIBUTION WIDTH 12.7 % (11.5-14.5); WHITE BLOOD COUNT 7.6 K/mm3 (4.0-10.0)
[2017-02-09 11:58] LABS: ALBUMIN/GLOBULIN RATIO 1.48 (1.00-1.93); BILIRUBIN,TOTAL 0.5 MG/DL (0.2-1.0); CALCIUM LEVEL 9.3 MG/DL (8.8-10.2); CREATININE FOR GFR 1.35 MG/DL (0.70-1.30); GLOMERULAR FILTRATION RATE 53.7 (>35); POTASSIUM SERUM 4.6 MEQ/L (3.5-5.1); TOTAL PROTEIN 6.7 GM/DL (6.4-8.2)
[2017-02-09 13:43] LABS: BACTERIA, URINE LARGE AMOUNT; MICROSCOPIC EXAM PERFORMED; RBC, URINE TNTC /hpf (0-3); SQUAMOUS EPITHELIAL CELL URINE NONE SEEN /hpf (SMALL AMT); WBC, URINE TNTC /hpf (0-3)
== END ==
LOC: M SFHCPLAZ 08:27
PROVIDERS: ATTEND Family Medicine
DX: N30.00 Acute cystitis without hematuria (principal); D50.9 Iron deficiency anemia, unspecified; N18.3 Chronic kidney disease, stage 3 (moderate); R73.01 Impaired fasting glucose; E55.9 Vitamin D deficiency, unspecified; Z79.899 Other long term (current) drug therapy

== ENCOUNTER → 2017-02-18 | Outpatient (REF) | payer MEDICARE ==
[2017-02-18 14:30] LABS: ALBUMIN 3.8 GM/DL (3.2-5.2); ANION GAP 10 MEQ/L (8-16); BLOOD UREA NITROGEN 24 MG/DL (7-18); CALCIUM LEVEL 8.8 MG/DL (8.8-10.2); CARBON DIOXIDE LEVEL 26 MEQ/L (21-32); CHLORIDE LEVEL 107 MEQ/L (98-107); CREATININE FOR GFR 0.96 MG/DL (0.70-1.30); GLOMERULAR FILTRATION RATE > 60.0 (>35); GLUCOSE, FASTING 100 MG/DL (83-110); POTASSIUM SERUM 4.4 MEQ/L (3.5-5.1); SODIUM LEVEL 143 MEQ/L (136-145)
== END ==
LOC: M SFHCPLAZ 10:33
PROVIDERS: ATTEND Family Medicine
DX: N18.3 Chronic kidney disease, stage 3 (moderate) (principal); N39.0 Urinary tract infection, site not specified
CPT/HCPCS: 36415; 80069; 81001; 87086; G0463

== ENCOUNTER → 2017-05-27 | Outpatient (REF) | payer MEDICARE | LOC: M SFHCPLAZ 11:18 | PROVIDERS: ATTEND Family Medicine | DX: N39.0 Urinary tract infection, site not specified (principal) | CPT/HCPCS: 81001; 87088; 87186; 90662; G0463 ==

== ENCOUNTER → 2017-06-06 | Outpatient (REF) | payer MEDICARE ==
[2017-06-06 13:31] LABS: ALBUMIN 3.9 GM/DL (3.2-5.2); ALKALINE PHOSPHATASE 66 U/L (45-117); ALT/SGPT 25 U/L (12-78); ANION GAP 7 MEQ/L (8-16); AST/SGOT 26 U/L (7-37); BILIRUBIN,TOTAL 0.5 MG/DL (0.2-1.0); BLOOD UREA NITROGEN 20 MG/DL (7-18); CALCIUM LEVEL 9.4 MG/DL (8.8-10.2); CARBON DIOXIDE LEVEL 31 MEQ/L (21-32); CHLORIDE LEVEL 107 MEQ/L (98-107); CHOLESTEROL LEVEL 167 MG/DL (<200); CREATININE FOR GFR 0.96 MG/DL (0.70-1.30); FERRITIN 76 NG/ML (26-388); GLOMERULAR FILTRATION RATE > 60.0 (>35); GLUCOSE, FASTING 88 MG/DL (83-110); PERCENT SATURATION 42.7 % (19.7-50.0); POTASSIUM SERUM 4.4 MEQ/L (3.5-5.1); SODIUM LEVEL 145 MEQ/L (136-145); TOTAL IRON BINDING CAPACITY 274 UG/DL (250-450); TOTAL PROTEIN 6.5 GM/DL (6.4-8.2); TRIGLYCERIDES LEVEL 177 MG/DL (<150)
== END ==
LOC: M SFHCPLAZ 08:23
PROVIDERS: ATTEND Family Medicine
DX: N18.3 Chronic kidney disease, stage 3 (moderate) (principal); D50.9 Iron deficiency anemia, unspecified; E78.00 Pure hypercholesterolemia, unspecified

== ENCOUNTER → 2017-11-01 | Outpatient (CLI) | payer MEDICARE | LOC: M RAD 15:35 | DX: M47.812 Spondylosis without myelopathy or radiculopathy, cervical region (principal) | CPT/HCPCS: 72125 ==

== ENCOUNTER → 2017-12-22 | Outpatient (REF) | payer MEDICARE | LOC: M LAB REF 16:20 | DX: L08.9 Local infection of the skin and subcutaneous tissue, unspecified (principal) | CPT/HCPCS: 87186 ==

== ENCOUNTER → 2018-03-01 | Outpatient (REF) | payer MEDICARE ==
[2018-03-01 12:18] LABS: BASO % 0.5 % (0.0-1.0); EOS # 0.2 10^3/uL (0.0-0.50); EOS % 1.9 % (0.0-3.0); HEMATOCRIT 44.9 % (42.0-52.0); HEMOGLOBIN 15.2 g/dl (13.5-17.5); IMMATURE GRANULOCYTE % 0.2 % (0-3.0); LYMPH # 1.2 10^3/uL (1.5-4.5); LYMPH % 14.5 % (24.0-44.0); MEAN CORPUSCULAR HGB CONC 33.9 g/dl (32.0-36.5); MEAN CORPUSCULAR VOLUME 91.6 fl (80.0-96.0); MONO # 0.9 10^3/uL (0.0-0.8); MONO % 10.9 % (0.0-5.0); NEUTROPHILS # 5.8 10^3/uL (1.8-7.7); PLATELET COUNT, AUTOMATED 212 10^3/uL (150-450); RED CELL DISTRIBUTION WIDTH 12.2 % (11.5-14.5); RETIC HEMOGLOBIN EQUIVALENT 35.9 pg (24-36); RETICULOCYTE # 77.4 10^9/L (17-77); RETICULOCYTE % 1.6 % (0.5-1.5)
[2018-03-01 13:08] LABS: ALBUMIN 4.2 GM/DL (3.2-5.2); ALKALINE PHOSPHATASE 67 U/L (45-117); ALT/SGPT 24 U/L (12-78); ANION GAP 12 MEQ/L (8-16); AST/SGOT 20 U/L (7-37); BILIRUBIN,TOTAL 0.6 MG/DL (0.2-1.0); BLOOD UREA NITROGEN 18 MG/DL (7-18); CARBON DIOXIDE LEVEL 24 MEQ/L (21-32); CHLORIDE LEVEL 107 MEQ/L (98-107); CREATININE FOR GFR 0.91 MG/DL (0.70-1.30); FREE T4 1.16 NG/DL (0.76-1.46); GLOMERULAR FILTRATION RATE > 60.0 (>35); GLUCOSE, FASTING 87 MG/DL (70-100); MAGNESIUM LEVEL 2.2 MG/DL (1.8-2.4); PSA SCREENING 0.22 NG/ML (< 4.0); SODIUM LEVEL 143 MEQ/L (136-145); TOTAL PROTEIN 7.2 GM/DL (6.4-8.2)
[2018-03-01 15:31] LABS: ESTIMATED AVERAGE GLUCOSE 126 MG/DL (60-110)
[2018-03-02 09:33] LABS: ALBUMIN 4.62 GM/DL (3.29-5.55); ALBUMIN % 64.1 % (55.8-66.1); ALPHA-1-GLOBULINS 0.29 GM/DL (0.17-0.41); ALPHA-2-GLOBULINS 0.78 GM/DL (0.42-0.99); ALPHA-2-GLOBULINS % 10.9 % (7.1-11.8); BETA-1-GLOBULINS 0.42 GM/DL (0.28-0.60); BETA-1-GLOBULINS % 5.9 % (4.7-7.2); BETA-2-GLOBULINS 0.32 GM/DL (0.19-0.55); BETA-2-GLOBULINS % 4.4 % (3.2-6.5); GAMMA GLOBULIN % 10.7 % (11.1-18.8); GAMMA GLOBULINS 0.77 GM/DL (0.65-1.58)
== END ==
LOC: M SFHCPLAZ 08:25
DX: D50.9 Iron deficiency anemia, unspecified (principal); N18.3 Chronic kidney disease, stage 3 (moderate); E03.9 Hypothyroidism, unspecified; R73.01 Impaired fasting glucose; Z12.5 Encounter for screening for malignant neoplasm of prostate
CPT/HCPCS: 83735

== ENCOUNTER 2018-05-04 11:44 | Emergency (ER) | payer MEDICARE ==
[2018-05-04 13:10] LABS: BASO # 0.1 10^3/uL (0.0-0.2); BASO % 0.6 % (0.0-1.0); EOS # 0.2 10^3/uL (0.0-0.50); HEMOGLOBIN 15.7 g/dl (13.5-17.5); IMMATURE GRANULOCYTE % 0.2 % (0-3.0); LYMPH # 1.4 10^3/uL (1.5-4.5); MEAN CORPUSCULAR HEMOGLOBIN 31.3 pg (27.0-33.0); MEAN CORPUSCULAR HGB CONC 33.4 g/dl (32.0-36.5); MEAN CORPUSCULAR VOLUME 93.6 fl (80.0-96.0); MONO # 0.9 10^3/uL (0.0-0.8); MONO % 9.8 % (0.0-5.0); NEUTROPHILS # 6.5 10^3/uL (1.8-7.7); NEUTROPHILS % 72.4 % (36.0-66.0); PLATELET COUNT, AUTOMATED 231 10^3/uL (150-450); RED BLOOD COUNT 5.02 10^6/uL (4.30-6.10); RED CELL DISTRIBUTION WIDTH 12.4 % (11.5-14.5)
[2018-05-04 13:41] LABS: ALBUMIN 4.3 GM/DL (3.2-5.2); ALBUMIN/GLOBULIN RATIO 1.43 (1.00-1.93); ALKALINE PHOSPHATASE 70 U/L (45-117); ALT/SGPT 32 U/L (12-78); ANION GAP 9 MEQ/L (8-16); AST/SGOT 28 U/L (7-37); BILIRUBIN,DIRECT 0.1 MG/DL (0.0-0.2); BILIRUBIN,TOTAL 0.5 MG/DL (0.2-1.0); BLOOD UREA NITROGEN 21 MG/DL (7-18); CALCIUM LEVEL 9.1 MG/DL (8.8-10.2); CARBON DIOXIDE LEVEL 28 MEQ/L (21-32); CHLORIDE LEVEL 106 MEQ/L (98-107); CPK CREATINE PHOSPHOKINASE 204 U/L (39-308); CREATININE FOR GFR 0.94 MG/DL (0.70-1.30); GLOMERULAR FILTRATION RATE > 60.0 (>35); GLUCOSE, FASTING 81 MG/DL (70-100); MB/CK RELATIVE INDEX 2.65 (< OR =4); NT-PRO BNP 269 PG/ML (<450); POTASSIUM SERUM 4.4 MEQ/L (3.5-5.1); SODIUM LEVEL 143 MEQ/L (136-145); TOTAL PROTEIN 7.3 GM/DL (6.4-8.2); TROPONIN I < 0.02 NG/ML (< 0.10)
[2018-05-04] MEDS ORDERED: ISOVUE-370 76% 100ML VIAL (Q9967) As Ordered (14:28)
== END 2018-05-04 15:14 | disposition home or self-care (01) ==
LOC: M ED 11:44
DX: J45.901 Unspecified asthma with (acute) exacerbation (principal); I12.9 Hypertensive chronic kidney disease with stage 1 through stage 4 chronic kidney disease, or unspecified chronic kidney disease; N18.3 Chronic kidney disease, stage 3 (moderate); I25.10 Atherosclerotic heart disease of native coronary artery without angina pectoris; E78.9 Disorder of lipoprotein metabolism, unspecified; E07.9 Disorder of thyroid, unspecified; Z86.73 Personal history of transient ischemic attack (TIA), and cerebral infarction without residual deficits; Z79.899 Other long term (current) drug therapy; Z79.890 Hormone replacement therapy
CPT/HCPCS: Q9967

== ENCOUNTER → 2018-11-24 | Outpatient (REF) | payer MEDICARE ==
[~2018-11-24] MED LIST changes: +ACET500T15 PO; -ACET50TAOT PO; -AMLO10TA2 PO; +AMLO10TA5 PO; -DRIS50002 PO; +DRIS50003 PO; +FLOM0.4C39 PO; -FLOM5CAP PO; +HYDR-3715 PO; +METO1TAB63 FT; -METO25TAB FT; -NORCOTAB PO; -PANT40TA2 PO; +PANT40TA3 PO; -QUIN1TAB15 PO; +QUIN1TAB4 PO
[2018-11-24 10:02] LABS: BASO % 0.5 % (0.0-1.0); EOS # 0.6 10^3/uL (0.0-0.50); EOS % 7.8 % (0.0-3.0); HEMATOCRIT 44.2 % (42.0-52.0); HEMOGLOBIN 14.7 g/dl (13.5-17.5); LYMPH # 1.3 10^3/uL (1.5-4.5); LYMPH % 16.8 % (24.0-44.0); MEAN CORPUSCULAR HEMOGLOBIN 31.7 pg (27.0-33.0); MEAN CORPUSCULAR HGB CONC 33.3 g/dl (32.0-36.5); MEAN CORPUSCULAR VOLUME 95.5 fl (80.0-96.0); MONO # 0.9 10^3/uL (0.0-0.8); MONO % 12.4 % (0.0-5.0); NEUTROPHILS # 4.7 10^3/uL (1.8-7.7); NEUTROPHILS % 62.2 % (36.0-66.0); PLATELET COUNT, AUTOMATED 193 10^3/uL (150-450); RED BLOOD COUNT 4.63 10^6/uL (4.30-6.10); WHITE BLOOD COUNT 7.6 10^3/uL (4.0-10.0)
[2018-11-24 10:55] LABS: ALBUMIN 3.9 GM/DL (3.2-5.2); ALT/SGPT 23 U/L (12-78); BILIRUBIN,TOTAL 0.5 MG/DL (0.2-1.0); BLOOD UREA NITROGEN 18 MG/DL (7-18); C REACTIVE PROTEIN QUANTITATIV < 0.30 MG/DL (0.00-0.30); CALCIUM LEVEL 8.8 MG/DL (8.8-10.2); CARBON DIOXIDE LEVEL 30 MEQ/L (21-32); CHLORIDE LEVEL 107 MEQ/L (98-107); CHOLESTEROL LEVEL 156 MG/DL (<200); CHOLESTEROL RISK RATIO 3.319 (<5); CPK CREATINE PHOSPHOKINASE 219 U/L (39-308); CREATININE FOR GFR 1.02 MG/DL (0.70-1.30); GLOMERULAR FILTRATION RATE > 60.0 (>35); GLUCOSE, FASTING 100 MG/DL (70-100); HDL CHOLESTEROL 47 MG/DL (>40); LDL CHOLESTEROL 81 MG/DL (<100); NON-HDL-C 109 MG/DL; POTASSIUM SERUM 4.6 MEQ/L (3.5-5.1); PTH INTACT 77.5 PG/ML (18.5-88.0); SODIUM LEVEL 141 MEQ/L (136-145); TOTAL 25(OH) VITAMIN D 25.5 NG/ML (30.0-100.0); TRIGLYCERIDES LEVEL 140 MG/DL (<150)
== END ==
LOC: M SFHCPLAZ 08:25
PROVIDERS: ATTEND Physician Assistant Medical
DX: E78.5 Hyperlipidemia, unspecified (principal); R73.01 Impaired fasting glucose; E55.9 Vitamin D deficiency, unspecified

== ENCOUNTER → 2018-12-12 | Outpatient (CLI) | payer MEDICARE ==
[~2018-12-12] MED LIST changes: +ISOVUE-370 76% 100ML VIAL (Q9967) As Ordered ONE
--- NOTE | 2018-12-12 16:05 | REP ---
HISTORY: Lung nodules. CONTRAST: 100 mL [id number] COMPARISON: 05/04/2018, which showed two right lung nodules, one in the right upper lobe measuring 6 mm and the other in the right lower lobe measuring 4 mm. The mediastinum and pulmonary elizabeth are unchanged. There is no mass or adenopathy. There is a large and in fact huge hiatal hernia, status quo. There are no pleural or pericardial effusions. There is no change in the imaged upper abdomen or imaged osseous structures. Evaluation of the lung ortiz shows the right lung nodules to be completely stable. No new abnormal nodules, masses or opacities have developed. IMPRESSION: Stable CT exam of the chest. According to the revised Jania Society criteria yearly screening CT is recommended as the aforementioned nodules represent category II lesions. Electronically Signed by Jarad Laughlin DO 12/12/2018 04:37 P
== END ==
LOC: M RAD 12:26
PROVIDERS: ATTEND Physician Assistant Medical
DX: R91.8 Other nonspecific abnormal finding of lung field (principal)
CPT/HCPCS: 71260; Q9967

== ENCOUNTER → 2019-05-07 | Outpatient (REF) | payer MEDICARE ==
[~2019-05-07] MED LIST changes: -ISOVUE-370 76% 100ML VIAL (Q9967) As Ordered ONE
[2019-05-07 10:05] LABS: BASO # 0.1 10^3/uL (0.0-0.2); BASO % 1.2 % (0.0-1.0); EOS # 0.2 10^3/uL (0.0-0.5); EOS % 3.4 % (0.0-3.0); HEMATOCRIT 45.3 % (42.0-52.0); HEMOGLOBIN 14.9 g/dl (13.5-17.5); LYMPH # 1.2 10^3/uL (1.5-5.0); LYMPH % 19.8 % (24.0-44.0); MEAN CORPUSCULAR HGB CONC 32.9 g/dl (32.0-36.5); MEAN CORPUSCULAR VOLUME 94.4 fl (80.0-96.0); MONO # 0.9 10^3/uL (0.0-0.8); MONO % 14.3 % (0.0-5.0); NEUTROPHILS # 3.6 10^3/uL (1.5-8.5); PLATELET COUNT, AUTOMATED 202 10^3/uL (150-450)
[2019-05-07 10:22] LABS: HEMOGLOBIN A1c 5.9 %
[2019-05-07 10:30] LABS: ERYTHROCYTE SEDIMENTATION RATE 5 mm/hr (0-20)
[2019-05-07 10:49] LABS: ALBUMIN 3.9 GM/DL (3.2-5.2); ALT/SGPT 21 U/L (12-78); BILIRUBIN,TOTAL 0.7 MG/DL (0.2-1.0); BLOOD UREA NITROGEN 22 MG/DL (7-18); C REACTIVE PROTEIN QUANTITATIV < 0.30 MG/DL (0.00-0.30); CALCIUM LEVEL 8.9 MG/DL (8.8-10.2); CARBON DIOXIDE LEVEL 27 MEQ/L (21-32); CHLORIDE LEVEL 108 MEQ/L (98-107); CREATININE FOR GFR 0.96 MG/DL (0.70-1.30); GLOMERULAR FILTRATION RATE > 60.0 (>35); GLUCOSE, FASTING 90 MG/DL (70-100); SODIUM LEVEL 143 MEQ/L (136-145); TOTAL PROTEIN 6.8 GM/DL (6.4-8.2)
[2019-05-07 12:44] LABS: VITAMIN B12 LEVEL 350 PG/ML (247-911)
== END ==
LOC: M SFHCPLAZ 08:17
PROVIDERS: ATTEND Family Medicine
DX: N18.3 Chronic kidney disease, stage 3 (moderate) (principal); R73.01 Impaired fasting glucose; Z12.5 Encounter for screening for malignant neoplasm of prostate; D50.9 Iron deficiency anemia, unspecified; R21 Rash and other nonspecific skin eruption
CPT/HCPCS: 36415; 80053; 82607; 83036; 85025; 85046; 85652; 86140; 86335; 88300; G0103

== ENCOUNTER → 2019-07-27 | Outpatient (CLI) | payer MEDICARE ==
--- NOTE | 2019-07-27 13:28 | REPPI ---
INDICATION: Neck pain PROCEDURE: Plain films of the cervical spine include AP, lateral and obliques. COMPARISON STUDIES: CT of the cervical spine 11/01/2018. 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 There is a slight anterolisthesis of C4 over C5. Degenerative disc disease is advanced at C5-6 level. C6-7 level is not well demonstrated sagittal images. On the AP view, sternal wires are seen. IMPRESSION: 1. No acute findings. 2. Degenerative changes are progressed at the C4-5 and C5-6 level. C4-5 appears near ankylosed. 3. Lower levels, below mid body of C6, not well demonstrated. 4. When compared to the CT scan 11/01/2018 degenerative disc disease at the C4-5 level appears progressed. Electronically Signed by Alfredo Straks MD 07/27/2019 01:19 P
--- NOTE | 2019-07-27 14:28 | REPPI ---
CHEST, TWO VIEWS: PA and lateral views of the chest are performed and compared to a prior study of 05/04/2018. There is mild bibasilar fibrotic change with no acute infiltrate or pulmonary edema. Heart is not enlarged. There is a moderate to large hiatal hernia again noted. There is mild calcification of the thoracic aorta. Mediastinal silhouette is unchanged. Multiple sternal wires are present. There are degenerative changes of the spine. IMPRESSION: No acute pulmonary disease. Electronically Signed by Pedro Curry MD 08/01/2019 09:43 A
== END ==
LOC: M PLAIMG 12:03
PROVIDERS: ATTEND Nurse Practitioner Adult Health
DX: M50.321 Other cervical disc degeneration at C4-C5 level (principal); M50.322 Other cervical disc degeneration at C5-C6 level; K44.9 Diaphragmatic hernia without obstruction or gangrene; R07.89 Other chest pain
CPT/HCPCS: 71046; 72052; G0463

== ENCOUNTER → 2019-09-24 | Outpatient (REF) | payer MEDICARE ==
[2019-09-24 13:36] LABS: BASO # 0.1 10^3/uL (0.0-0.2); BASO % 0.5 % (0.0-1.0); EOS # 0.1 10^3/uL (0.0-0.5); EOS % 1.1 % (0.0-3.0); HEMATOCRIT 45.4 % (42.0-52.0); HEMOGLOBIN 15.1 g/dl (13.5-17.5); LYMPH # 1.5 10^3/uL (1.5-5.0); LYMPH % 15.4 % (24.0-44.0); MEAN CORPUSCULAR HEMOGLOBIN 30.4 pg (27.0-33.0); MEAN CORPUSCULAR HGB CONC 33.3 g/dl (32.0-36.5); MEAN CORPUSCULAR VOLUME 91.5 fl (80.0-96.0); MONO # 1.1 10^3/uL (0.0-0.8); MONO % 11.5 % (0.0-5.0); NEUTROPHILS # 6.9 10^3/uL (1.5-8.5); NEUTROPHILS % 71.1 % (36.0-66.0); PLATELET COUNT, AUTOMATED 204 10^3/uL (150-450); RED BLOOD COUNT 4.96 10^6/uL (4.30-6.10); WHITE BLOOD COUNT 9.7 10^3/uL (4.0-10.0)
[2019-09-24 14:08] LABS: ALBUMIN 4.3 GM/DL (3.2-5.2); ALT/SGPT 30 U/L (12-78); BILIRUBIN,TOTAL 0.7 MG/DL (0.2-1.0); BLOOD UREA NITROGEN 24 MG/DL (7-18); CALCIUM LEVEL 9.1 MG/DL (8.8-10.2); CARBON DIOXIDE LEVEL 27 MEQ/L (21-32); CHLORIDE LEVEL 108 MEQ/L (98-107); CREATININE FOR GFR 0.96 MG/DL (0.70-1.30); GLOMERULAR FILTRATION RATE > 60.0 (>35); GLUCOSE, FASTING 75 MG/DL (70-100); POTASSIUM SERUM 4.3 MEQ/L (3.5-5.1); SODIUM LEVEL 139 MEQ/L (136-145); TOTAL PROTEIN 7.5 GM/DL (6.4-8.2); VITAMIN B12 LEVEL 366 PG/ML (247-911)
[2019-09-24 14:38] LABS: HEMOGLOBIN A1c 6.4 %
[2019-09-25 10:49] LABS: ALBUMIN 4.73 GM/DL (3.29-5.55); ALBUMIN % 63.1 % (55.8-66.1); ALPHA-2-GLOBULINS 0.86 GM/DL (0.42-0.99); ALPHA-2-GLOBULINS % 11.4 % (7.1-11.8); BETA-1-GLOBULINS 0.49 GM/DL (0.28-0.60); BETA-1-GLOBULINS % 6.5 % (4.7-7.2); BETA-2-GLOBULINS 0.32 GM/DL (0.19-0.55); BETA-2-GLOBULINS % 4.2 % (3.2-6.5); GAMMA GLOBULIN % 10.8 % (11.1-18.8); GAMMA GLOBULINS 0.81 GM/DL (0.65-1.58)
== END ==
LOC: M SFHCPLAZ 10:38
PROVIDERS: ATTEND Family Medicine
DX: D50.9 Iron deficiency anemia, unspecified (principal); R73.01 Impaired fasting glucose; E03.9 Hypothyroidism, unspecified; N18.3 Chronic kidney disease, stage 3 (moderate)
CPT/HCPCS: 36415; 80053; 82607; 83036; 84165; 84439; 84443; 85025; 85046; 86335; G0463

== ENCOUNTER → 2020-01-15 | Outpatient (CLI) | payer MEDICARE ==
[~2020-01-15] MED LIST changes: -AMLO10TA5 PO; +AMLO1TAB25 PO; +PANT40TA29 PO; -PANT40TA3 PO
--- NOTE | 2020-01-16 07:27 | REP ---
REASON FOR EXAM: Followup lung nodules. All priors reviewed, the latest 12/12/2018. The mediastinum and pulmonary elizabeth are unchanged. Nonenlarged lymph nodes are noted, status quo. There is a large hiatal hernia, status quo. There are no pleural or pericardial effusions. The imaged upper abdomen and imaged osseous structures are unchanged. Evaluation of the lung ortiz shows no new abnormal nodules, masses, or opacities. IMPRESSION: Stable CT examination of the chest. According to the revised Fleischner Society criteria, yearly CT screening is recommended if clinically relevant. Electronically Signed by Jarad Laughlin DO 01/16/2020 09:30 A
== END ==
LOC: M RAD 12:33
PROVIDERS: ATTEND Family Medicine
DX: R91.8 Other nonspecific abnormal finding of lung field (principal)

== ENCOUNTER → 2020-01-21 | Outpatient (REF) | payer MEDICARE ==
[~2020-01-21] MED LIST changes: +AMLO10TA5 PO; -AMLO1TAB25 PO; -PANT40TA29 PO; +PANT40TA3 PO
[2020-01-21 14:22] LABS: APPEARANCE, URINE TURBID (CLEAR); BACTERIA, URINE AUTO 3+ (NEGATIVE); BILIRUBIN, URINE AUTO NEGATIVE (NEGATIVE); BLOOD, URINE BLOOD NEGATIVE (NEGATIVE); CALCIUM OXALATE CRYSTALS SMALL; COLOR, URINE AMBER (YELLOW); GLUCOSE, URINE (UA) AUTO NEGATIVE (NEGATIVE); KETONE, URINE AUTO NEGATIVE (NEGATIVE); LEUKOCYTE ESTERASE, URINE AUTO 2+ (NEGATIVE); NITRITE, URINE AUTO POSITIVE (NEGATIVE); PROTEIN, URINE AUTO 3+ mg/dL (NEGATIVE); RBC, URINE AUTO 54 /HPF (0-3); SPECIFIC GRAVITY URINE AUTO 1.019 (1.002-1.035); SQUAMOUS EPITHELIAL CELL UR AU 0 /HPF (0-6); UROBILINOGEN, URINE AUTO 0.2 mg/dL (0.0-2.0); WBC, URINE AUTO 10 /HPF (0-3)
== END ==
LOC: M SFHCPLAZ 11:49
PROVIDERS: ATTEND Physician Assistant Medical
DX: R30.0 Dysuria (principal)